=== PATIENT | male | born 1985 | race Caucasian/White ===

== ENCOUNTER 2018-07-23 19:40 | Inpatient (IN) ==
[2018-07-23 20:25] LABS: URINE SOURCE CLEAN CATCH
[2018-07-23 20:30] LABS: BILIRUBIN URINE SMALL (NEGATIVE); BLOOD URINE NEGATIVE (NEGATIVE); COLOR YELLOW; GLUCOSE URINE NEGATIVE (NEGATIVE); KETONE URINE NEGATIVE (NEGATIVE); LEUKOCYTES URINE NEGATIVE (NEGATIVE); NITRITE URINE NEGATIVE (NEGATIVE); PH URINE 6.5; PROTEIN URINE NEGATIVE (NEGATIVE); TURBIDITY URINE CLEAR (CLEAR); UROBILINOGEN URINE NORMAL (NORMAL)
[2018-07-23 20:32] LABS: UR EPITHELIAL CELLS <10 /HPF (<10); URINE BACTERIA NEGATIVE /HPF; URINE RBC <10 /HPF (<10); URINE WBC <10 /HPF (<10)
[2018-07-23 20:59] LABS: INR 1.07; PROTIME 14.8 Seconds (11.0-16.0)
[2018-07-23] MEDS: PROAMATINE PO ONE ×2 (21:27→21:47)
[2018-07-23 21:44] LABS: AGAP 14; ALB/GLOB RATIO 1.3; ALKALINE PHOSPHATASE 328 U/L (32-122); AMYLASE 49 U/L (20-200); BUN 5 mg/dL (8-22); CALCIUM 8.7 mg/dL (8.8-10.2); CHLORIDE 100 mmol/L (98-107); COSMO 271; CREATININE 0.8 mg/dL (0.7-1.2); ESTIMATED GFR > 60; GLUCOSE 105 mg/dL (70-104); LIPASE 60 U/L (13-60); POTASSIUM 5.2 mmol/L (3.5-5.1); SODIUM 137 mmol/L (136-145); TCO2 23 mmol/L (25-35); TOTAL BILIRUBIN 13.27 mg/dL (0.20-1.00); TOTAL PROTEIN 7.2 g/dL (6.3-8.3)
[2018-07-23 21:52] LABS: BASO# 0.29 X1000 (0.0-0.2); BASO% 3.2 % (0.0-0.8); EOS% 2.2 % (0.0-10.0); HEMATOCRIT 38.1 % (42.0-52.0); HEMOGLOBIN 13.6 g/dL (14.0-18.0); LYMPH# 3.74 X1000 (1.2-3.4); LYMPH% 41.6 % (20.5-51.1); MCHC 35.7 g/dL (33-37); MCV 81.2 FL (81-99); MONO# 1.17 X1000 (0.11-0.59); MPV 11.2 FL (7.4-10.4); PLT 318 X1000 (130-400); RBC 4.69 XMIL (4.7-6.1); RDW 14.6 % (11.5-14.5)
[2018-07-23 22:02] LABS: GOT 882 U/L (10-34); GPT 1242 U/L (10-44)
[2018-07-23 23:51] LABS: ACETAMINOPHEN < 1.2 ug/mL (10-30); IRON SATURATION 34 %; TIBC 375 ug/dL; TOTAL IRON 129 ug/dL (53-167); UNBOUND IRON 246 ug/dL (112-346)
[2018-07-24 00:18] LABS: UR AMPHETAMINES QUAL NONE DETECTED (NONE DETECT); UR BARBITUATES QUAL NONE DETECTED (NONE DETECT); UR BENZODIAZEPIN QUAL NONE DETECTED (NONE DETECT); UR CANNABINOIDS QUAL NONE DETECTED (NONE DETECT); UR COCAINE QUAL NONE DETECTED (NONE DETECT); UR METHADONE QUAL NONE DETECTED (NONE DETECT); UR OPIATES QUAL NONE DETECTED (NONE DETECT); UR OXYCODONE QUAL NONE DETECTED (NONE DETECT); UR PCP QUAL NONE DETECTED (NONE DETECT)
--- NOTE | 2018-07-24 01:13 | HISTORY AND PHYSICAL ---
CHIEF COMPLAINT: Nausea and vomiting, right upper quadrant abdominal pain. HISTORY OF PRESENT ILLNESS: This is a 32-year-old male with history of IV drug abuse who presented to the emergency department complaining of abdominal pain. Actually, he was brought from long-term. He reports that during the last 3 to 4 days he was complaining of some nausea and vomiting. 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 He denies any fever or chills. Here upon ER evaluation, we noticed his liver enzymes were very elevated as well as alkaline phosphatase levels as well so he is being admitted to the hospital for further evaluation and treatment. PAST MEDICAL HISTORY: Patient does not have any medical condition. PAST SURGICAL HISTORY: None. ALLERGIES: Patient is not allergic to anything. 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 He is using synthetic marijuana that is smoked. He does not drink alcohol anymore and he used to smoke 1 pack per day since his 20s. FAMILY HISTORY: Noncontributory. REVIEW OF SYSTEMS: All 11 systems were reviewed and all symptoms are related to H and P. PHYSICAL EXAMINATION: VITALS: Temperature 98.1 degrees, heart rate 74, respiratory rate 18, blood pressure 133/81, O2 saturation 97% on room air. GENERAL: This is a 32-year-old male lying in bed in no acute distress. HEENT: Head is normocephalic and atraumatic. NECK: No JVD noted. No carotid bruits. No lymphadenopathy. No thyromegaly. CARDIOVASCULAR: S1, S2 heard. No murmurs, gallops, or rubs. Regular rate and rhythm. RESPIRATORY: Clear bilaterally to auscultation. No work of breathing or using accessory muscles. ABDOMEN: Soft, a little bit tender to palpation in the right upper quadrant, but there are no signs of peritoneal irritation. EXTREMITIES: No clubbing, cyanosis, or edema. Peripheral pulses present in both legs. NEUROLOGICAL: Patient alert, oriented x3. Moves 4 extremities. LABORATORY DATA: White cell count 9.0, hemoglobin 13.6, hematocrit 38.1, platelets 318. INR 1.07. Potassium 5.2 with glucose 105. Ferritin 568 with total bilirubin of 13.27. AST 882, ALT 1242, alkaline phosphatase 328, ammonia level is 61. Acetaminophen level less than 1.2. ASSESSMENT/PLAN: Acute hepatitis vs biliary obstruction. At this point, I do not know the reason why he has this problem. I do not know if this is a viral hepatitis or it is status secondary to drugs or medication. The patient reports not been taking medications while he is in long-term. At this point, we are going to order hepatitis panel. The acetaminophen level is normal and we will check HIV as well because of his history of IV drug abuse. We are going to order an abdominal ultrasound to see there is any biliary obstruction. CT of the abdomen and pelvis has been ordered but has not been reported yet. We will consult Dr. Wells for further evaluation and treatment. We will continue to monitor this patient closely here in the hospital. cc: Ryan Reid MD MTDD
[2018-07-24] MEDS ORDERED: ZOFRAN IV PRN (01:21)
[2018-07-24] MEDS: NS 1,000 ML IV SCH ×3 (01:25→18:11)
[2018-07-24] MEDS ORDERED: ROCEPHIN 1 GM in NS 50 ML IV ONE (02:02)
--- NOTE | 2018-07-24 02:05 | PROVIDER DOCUMENTATION ---
This chart was entered by Cassidy Grewal Scribe, acting as scribe for Sha Oliva MD. HPI-Abdominal Pain/GI Problem - General Chief Complaint: Abdominal Pain Stated Complaint: JAUNDICE W/EPIGASTRIC AND FLANK PAIN Time Seen by Provider: 07/23/18 19:47 Source: patient Allergies/Adverse Reactions: Patient Allergies Allergy/AdvReac Type Severity Reaction Status Date / Time No Known Allergies Allergy Verified 07/23/18 21:34 Home Medications: Home Medication List Medication Instructions Recorded Confirmed Last Taken Type NK [No Home Medications] 07/23/18 07/23/18 Unknown History - History of Present Illness-ABD Nature of Presenting Problems: 32yom presents to ED cc epigastric pain, RLQ pain, nausea, vomiting and yellowing of skin. Pt is an inmate at the [facility]. Pt has hx of IVDA but no hx of blood transfusion. Abdominal Pain Onset Location: reports: epigastric Pain Radiation: reports: RUQ Quality of Pain: reports: aching Severity in ED: reports: moderate Onset/Duration: reports: unsure Timing: reports: still present, constant, changing over time Activities at Onset: reports: none Exposure to sick contacts?: No Modifying Factors: improves with: nothing Review of Systems - Adult - REVIEW OF SYSTEMS - ADULT Constitutional: reports: see HPI. denies: chills, fever, fatique Eyes: reports: no symptoms reported Ears, Nose, Mouth & Throat: reports: no symptoms reported Cardiovascular: reports: no symptoms reported Respiratory: reports: no symptoms reported Gastrointestinal: reports: see HPI, abdominal pain (epigastric and RUQ), vomit ing Genitourinary: reports: no symptoms reported Musculoskeletal: reports: no symptoms reported Integumentary: reports: see HPI, other (yellowing of skin) Neurological: reports: no symptoms reported Hematologic/Lymphatic: reports: no symptoms reported Past History - Adult - PAST MEDICAL HISTORY-ADULT Review of Records: reports: Nursing Assessment Review, Medications Reviewed, Social history reviewed & non-contributory. Major Childhood Illnesses: reports: denies history Cardiovascular: reports: denies history Respiratory: reports: denies history Gastrointestinal: reports: denies history Obstetrical/Gynecological: reports: denies history Genitourinary: reports: denies history Musculoskeletal: reports: denies history Neurological: reports: denies history Endocrine/Immune: reports: denies history Other Conditions: reports: denies history - IMMUNIZATION STATUS Childhood Immunizations: See Nurse Assessment Flu Vaccine: See Nurse Assessment - FAMILY HISTORY Family History: reviewed, not pertinent - SOCIAL HISTORY Smoking: cigarettes, greater than 1 pack/day Provider spent 3-5 mins advising pt. on dangers of tobacco.: Discussed manners to quit use, and f/u contacts for add'l counseling. Physical Exam-General - PHYSICAL EXAM-ADULT Initial Vital Signs Reviewed: Yes - CONSTITUTIONAL General Appearance: alert, mild distress. negative: anxious, combative - EYES Eyes: PERRL/EOMI, scleral icterus. negative: photophobia - HEAD, EARS, NOSE, MOUTH & THROAT HENMT: moist mucous membranes, normal ENT inspection. negative: angioedema - NECK Neck: non-tender, full range of motion, supple, normal inspection. negative: Brudzinski's sign, carotid bruit, C-spine tenderness - RESPIRATORY Respiratory: chest non-tender, lungs clear, normal breath sounds, no pleuratic chest pain - CARDIOVASCULAR Cardiovascular: normal peripheral pulses, regular rate, rhythm, no edema - GASTROINTESTINAL (ABDOMEN) Abdominal Exam: normal bowel sounds, tenderness (epigastric). negative: non tender - LYMPHATIC Lymphatic: no adenopathy - MUSCULOSKELETAL Back Exam: normal inspection, no CVA tenderness, no vertebral tenderness. negative: swelling Extremity: normal range of motion, non-tender, normal gait. negative: deformity - SKIN Integumentary: warm/dry, signs of IVDA, jaundice. negative: normal color, diaphoresis - NEUROLOGIC Neurologic: grossly normal, no motor/sensory deficits - PSYCHIATRIC Psych/Mental Status: normal thought content, normal thought process, oriented x 3 Progress - PLAN OF CARE/RESULTS Progress/Plan/Lab Results: Vital Signs - 8 hr 07/23/18 19:45 Temperature 98.1 F Pulse Rate 74 Respiratory Rate 18 Blood Pressure 138/81 O2 Sat by Pulse Oximetry 97 Laboratory Results - last 24 hr 07/23/18 07/23/18 07/23/18 20:20 20:45 20:45 WBC RBC Hgb Hct MCV MCH MCHC RDW Std Deviation Plt Count MPV Immature Gran % (Auto) Neut % (Auto) Lymph % (Auto) [place] % (Auto) Eos % (Auto) Baso % (Auto) Immature Gran # (Auto) Neut # (Auto) Lymph # (Auto) [place] # (Auto) Eos # (Auto) Baso # (Auto) PT 14.8 INR 1.07 Sodium 137 Potassium 5.2 H Chloride 100 Carbon Dioxide 23 L Anion Gap 14 BUN 5 L Creatinine 0.8 Estimated GFR/1.73 m2 > 60 BUN/Creatinine Ratio 6 Glucose 105 H Calculated Osmolality 271 Calcium 8.7 L Total Bilirubin 13.27 H AST 882 H ALT 1242 H Alkaline Phosphatase 328 H Ammonia Total Protein 7.2 Albumin 4.0 Globulin 3.2 Albumin/Globulin Ratio 1.3 Amylase 49 Lipase 60 Urine Source CLEAN CATCH Urine Color YELLOW Urine Turbidity CLEAR Urine pH 6.5 Ur Specific [place] 1.000 Urine Protein NEGATIVE Ur Glucose (Stick) NEGATIVE Ur Ketones (Stick) NEGATIVE Urine Blood NEGATIVE Urine Nitrite NEGATIVE Urine Bilirubin SMALL A Urobilinogen Dipstick NORMAL Urine Leukocytes NEGATIVE Urine WBC (Auto) <10 Urine RBC (Auto) <10 U Epithel Cells (Auto) <10 Urine Bacteria (Auto) NEGATIVE 07/23/18 07/23/18 20:45 21:20 WBC 9.00 RBC 4.69 L Hgb 13.6 L Hct 38.1 L MCV 81.2 MCH 29.0 MCHC 35.7 RDW Std Deviation 14.6 H Plt Count 318 MPV 11.2 H Immature Gran % (Auto) 0.0 Neut % (Auto) 40.0 L Lymph % (Auto) 41.6 [place] % (Auto) 13.0 H Eos % (Auto) 2.2 Baso % (Auto) 3.2 H Immature Gran # (Auto) 0.00 Neut # (Auto) 3.60 Lymph # (Auto) 3.74 H [place] # (Auto) 1.17 H Eos # (Auto) 0.20 Baso # (Auto) 0.29 H PT INR Sodium Potassium Chloride Carbon Dioxide Anion Gap BUN Creatinine Estimated GFR/1.73 m2 BUN/Creatinine Ratio Glucose Calculated Osmolality Calcium Total Bilirubin AST ALT Alkaline Phosphatase Ammonia 61 H Total Protein Albumin Globulin Albumin/Globulin Ratio Amylase Lipase Urine Source Urine Color Urine Turbidity Urine pH Ur Specific [place] Urine Protein Ur Glucose (Stick) Ur Ketones (Stick) Urine Blood Urine Nitrite Urine Bilirubin Urobilinogen Dipstick Urine Leukocytes Urine WBC (Auto) Urine RBC (Auto) U Epithel Cells (Auto) Urine Bacteria (Auto) Orders Category Date Time Status Saline Loc DIRECTED Care 07/23/18 20:14 Active NPO Diet 07/23/18 20:[address] ABD/PELVIS W/IV CONT ONLY [CT] Stat Exams 07/23/18 22:41 Ordered AMMONIA [CHEM] Stat Lab 07/23/18 21:20 Completed AMYLASE [CHEM] Stat Lab 07/23/18 20:45 Completed CBC WITH ELECTRONIC DIFF [HEME] Stat Lab 07/23/18 20:45 Completed COMPREHENSIVE METABOLIC PANEL [CHEM] Stat Lab 07/23/18 20:45 Completed FERRITIN Stat Lab 07/23/18 22:42 Received HEPATITIS PROFILE [HH] Stat Lab 07/23/18 20:36 Ordered LIPASE [CHEM] Stat Lab 07/23/18 20:45 Completed PROTIME WITH INR [COAG] Stat Lab 07/23/18 20:45 Completed TIBC [UIBC W TOTAL IRON] [CHEM] Stat Lab 07/23/18 20:45 Received Tylenol [ACETAMINOPHEN] [TDM] Stat Lab 07/23/18 20:45 Received URINALYSIS W/POSS RFLX CULT [URINALYSIS] Stat Lab 07/23/18 20:20 Completed Midodrine [Proamatine] Med 07/23/18 21:27 Discontinued 10 mg PO NOW ONE Result Diagrams: 07/23/18 20:45 07/23/18 20:45 - CONSULTS/PCP/HOSPITALIST Notification #1 *Consult/PCP/Hospitalist*: Dr. Wells Time Discussed: 22:50 Consult Disposition: Admit (agreed to admit pt and requested I order a CT of the abdomen) #2 Consult: Dr. Dominique Time Discussed: 23:07 Consult Disposition: Admit (Hx, PE and pt care discussed.) Departure - Departure Date of Disposition Decision: 07/23/18 Time of Disposition Decision: 23:07 DIAGNOSIS: Transaminitis, Acute cholecystitis Abdominal pain Qualifiers: Abdominal location: epigastric Qualified Code(s): R10.13 - Epigastric pain Vomiting Qualifiers: Nausea presence: with nausea Disposition: ADMITTED INPATIENT 09 Certified Medical Emergency: Emergent Condition: Stable - Critical Care Note This patient required my direct & personal management of CC.: No Attestation - Physician/ GERTRUDE Attestation Patient care was provided by Advanced Practice Provider:: No The physician spent face to face time with patient:: Yes Advanced Practice Provider documentation review:: Supervising physician onsite and consulted in the evaluation and care of this patient. The physician did have a face to face encounter with the patient. This chart was documented by the indicated scribe, (Cassidy Grewal Scribe) and accurately reflects the services I performed and decisions made by me, Sha García MD, as attested by the provider's signature.
[2018-07-24] MEDS: PRILOSEC PO SCH (05:59)
--- NOTE | 2018-07-24 06:39 | Diag Imaging Result Doc PS360 ---
CT ABD/PELVIS W/IV CONT ONLY - 07/23/2018 INDICATION: EPIGASTRIC PAIN, TRANSAMINITIS COMPARISON: None FINDINGS: The lung bases are clear and the heart size is normal. There is periportal edema throughout the liver. There is severe wall thickening of the gallbladder. No gallbladder distention or visible radiodense stones. There is some inflammation around the gallbladder and duodenum as well as the pancreatic head. Common bile duct appears nondilated. No bowel obstruction or inflammation. Trace pelvic free fluid. No free air. Urinary bladder, prostate, and rectum are normal. Bony structures are intact and well mineralized. IMPRESSION: 1. High-grade inflammation surrounding the gallbladder also involving the descending duodenum and pancreatic head. Highly suspicious for cholecystitis. Gallbladder ultrasound recommended. 2. Trace pelvic free fluid. 3. Mild periportal edema of the liver. This exam was performed using automated exposure control, adjustment of mA or kV according to patient size, and/or use of iterative reconstruction technique Electronically signed by Oumar Gusman 07/24/2018 6:36 AM
[2018-07-24 08:04] LABS: INR 1.08; PROTIME 14.8 Seconds (11.0-16.0)
--- NOTE | 2018-07-24 09:30 | Diag Imaging Result Doc PS360 ---
EXAM: US ABDOMEN-COMPLETE HISTORY: transaminitis TECHNIQUE: Abdominal ultrasound COMPARISON: CT from 07/23/2018 FINDINGS: Normal pancreas. No abdominal aortic aneurysm. Normal inferior vena cava. No focal hepatic abnormality. Normal right kidney. No hydronephrosis. The gallbladder wall is thickened measuring up to 5 mm. No stones. The common bile duct measures 3 mm. Normal spleen. Normal left kidney. No hydronephrosis. IMPRESSION: Acalculous cholecystitis. Electronically signed by Abner Johnston 07/24/2018 9:27 AM
[2018-07-24 20:56] LABS: HIV ANTIBODY SCREEN SEE COMMENTS
[2018-07-24] MEDS ORDERED: IMODIUM PO ONE (22:06)
[2018-07-25] MEDS: NS 1,000 ML IV SCH ×4 (02:02→22:35)
[2018-07-25] MEDS: PRILOSEC PO SCH (06:27)
[2018-07-25 07:27] LABS: BASO# 0.19 X1000 (0.0-0.2); BASO% 2.3 % (0.0-0.8); EOS# 0.28 X1000 (0.0-0.7); EOS% 3.4 % (0.0-10.0); HEMATOCRIT 39.6 % (42.0-52.0); LYMPH# 2.89 X1000 (1.2-3.4); LYMPH% 34.9 % (20.5-51.1); MCH 28.7 PG (27-31); MCHC 35.4 g/dL (33-37); MCV 81.3 FL (81-99); MONO# 1.06 X1000 (0.11-0.59); MONO% 12.8 % (1.7-9.3); MPV 11.4 FL (7.4-10.4); NEUT# 3.87 X1000 (1.4-6.5); NEUT% 46.6 % (42.2-75.2); PLT 323 X1000 (130-400); RBC 4.87 XMIL (4.7-6.1); RDW 15.3 % (11.5-14.5); WBC 8.29 X1000 (4.8-10.8)
[2018-07-25 07:44] LABS: AGAP 13; ALB/GLOB RATIO 1.3; ALBUMIN 3.5 g/dL (3.5-5.0); ALKALINE PHOSPHATASE 314 U/L (32-122); BUN 4 mg/dL (8-22); CALCIUM 8.6 mg/dL (8.8-10.2); CHLORIDE 102 mmol/L (98-107); COSMO 272; CREATININE 0.7 mg/dL (0.7-1.2); ESTIMATED GFR > 60; GLUCOSE 95 mg/dL (70-104); POTASSIUM 4.2 mmol/L (3.5-5.1); SODIUM 138 mmol/L (136-145); TCO2 23 mmol/L (25-35); TOTAL BILIRUBIN 14.71 mg/dL (0.20-1.00); TOTAL PROTEIN 6.2 g/dL (6.3-8.3)
[2018-07-25 08:01] LABS: GOT 1082 U/L (10-34); GPT 1323 U/L (10-44)
[2018-07-25 08:25] LABS: INR 1.13; PROTIME 15.4 Seconds (11.0-16.0)
[2018-07-25 14:37] LABS: HEPATITIS PROFILE ACUTE SEE COMMENTS
[2018-07-25] MEDS ORDERED: MORPHINE IV PRN (17:17)
[2018-07-26] MEDS: NS 1,000 ML IV SCH (01:43)
[2018-07-26] MEDS: PRILOSEC PO SCH (06:08)
[2018-07-26 07:21] LABS: BASO# 0.21 X1000 (0.0-0.2); BASO% 2.3 % (0.0-0.8); EOS# 0.38 X1000 (0.0-0.7); EOS% 4.2 % (0.0-10.0); HEMATOCRIT 38.8 % (42.0-52.0); HEMOGLOBIN 13.9 g/dL (14.0-18.0); IMM GRAN# 0.02 X1000 (0.0-0.04); IMM GRAN% 0.2 % (0.0-0.5); LYMPH# 3.55 X1000 (1.2-3.4); LYMPH% 39.6 % (20.5-51.1); MCHC 35.8 g/dL (33-37); MCV 80.8 FL (81-99); MONO# 1.28 X1000 (0.11-0.59); MONO% 14.3 % (1.7-9.3); MPV 11.3 FL (7.4-10.4); NEUT# 3.53 X1000 (1.4-6.5); NEUT% 39.4 % (42.2-75.2); PLT 311 X1000 (130-400); RDW 15.6 % (11.5-14.5); WBC 8.97 X1000 (4.8-10.8)
[2018-07-26 07:22] LABS: INR 1.07; PROTIME 14.8 Seconds (11.0-16.0)
[2018-07-26 07:37] LABS: AGAP 9; ALB/GLOB RATIO 1.5; ALBUMIN 3.7 g/dL (3.5-5.0); ALKALINE PHOSPHATASE 307 U/L (32-122); BUN 3 mg/dL (8-22); CALCIUM 8.5 mg/dL (8.8-10.2); CHLORIDE 101 mmol/L (98-107); COSMO 270; CREATININE 0.8 mg/dL (0.7-1.2); ESTIMATED GFR > 60; GLUCOSE 91 mg/dL (70-104); POTASSIUM 3.8 mmol/L (3.5-5.1); SODIUM 137 mmol/L (136-145); TCO2 27 mmol/L (25-35); TOTAL BILIRUBIN 14.72 mg/dL (0.20-1.00); TOTAL PROTEIN 6.1 g/dL (6.3-8.3)
[2018-07-26 07:52] LABS: GOT 1228 U/L (10-34); GPT 1435 U/L (10-44)
[2018-07-26 10:43] LABS: HCV BY PCR SEE COMMENTS
--- NOTE | 2018-07-26 12:01 | PROGRESS NOTE ---
DATE: 07/24/2018 SUBJECTIVE: Today, Mr. Barrett refers to be feeling a lot better. He said his pain has significantly improved, and that he has gotten a lot of appetite and he wants to be fed. OBJECTIVE: Vital Signs: Blood pressure is 116/57, pulse of 53, respirations 16, temperature 97.9 degrees, the patient is saturating 99% on room air. General: Mr. Barrett is a 32-year-old gentleman. He is in bed. No distress. HEENT: Mucosa is pink and moist. About 2+ to 3+ icteric. Chest: Clear to auscultation. No crepitations. No rhonchi. Cardiovascular: Regular rate and rhythm. Abdomen: Soft. Minimally tender in the epigastrium. Bowel sounds are present. Extremities: No pedal edema. 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 LABORATORY DATA: None for today. Yesterday's has been reviewed. He did have a total bilirubin of 13.37. AST and ALT have significantly been elevated. ASSESSMENT: 1. Acute hepatocellular injury, most likely viral hepatitis. Hepatitis panel has been done. We are pending on the results. 2. Acalculous cholecystitis. The patient is currently asymptomatic of this. He would be advised to follow up with Surgery at a later date. 3. Inmate from correctional facility. The patient has an officer in his room. In general, Mr. Barrett is stable. He continues to be remarkably icteric. We think he probably has an acute hepatitis of viral etiology. We are pending a hepatitis panel. He has some appetite, so we are going to feed him, and await his hepatitis panel. The patient has been evaluated by Gastroenterology as well. cc: Rosalio Little MD
[2018-07-26] MEDS ORDERED: MARCAINE 0.25% PF/EPI 1:200,000 ONE (13:36)
[2018-07-26] MEDS ORDERED: LR 1,000 ML ONE (13:36)
[2018-07-26] MEDS ORDERED: SODIUM CHLORIDE 0.9% ONE (13:36)
[2018-07-26] MEDS ORDERED: DIPRIVAN 1% ONE (13:56)
[2018-07-26] MEDS ORDERED: FENTANYL ONE (13:56)
[2018-07-26] MEDS ORDERED: NORCURON ONE (13:58)
[2018-07-26] MEDS ORDERED: QUELICIN (DOSE) ONE (13:58)
[2018-07-26] MEDS ORDERED: SODIUM CHLORIDE 0.9% 0 ML ONE (13:58)
[2018-07-26] MEDS ORDERED: VERSED ONE (14:09)
--- NOTE | 2018-07-26 14:31 | GASTROENTEROLOGY CONSULTATION ---
DATE: 07/24/2018 REASON FOR CONSULTATION: Elevated liver function tests. HISTORY OF PRESENT ILLNESS: This is a 32 -year-old male who reports onset of symptoms 4 to 5 days ago. He reports increased weakness, not being able to eat, episodes of nausea, vomiting and abdominal pain. He had noticed his urine to be dark in color and his stools we light in color. Patient currently resides in long-term and he is also on the work release program. There is an officer at his bedside. Patient denies taking any over the counter medications recently. He does not take any medications. He denies a diagnosis of hepatitis. Patient does have a history of IV drug abuse. Patient states not recently. He denied fever. On admission his liver function tests were elevated. Total bilirubin 13.27, AST 882, ALT 1242, alkaline phosphatase 328. PAST MEDICAL HISTORY: None reported. PAST SURGICAL HISTORY: None reported. ALLERGIES: No known drug allergies. HOME MEDICATIONS: None reported. SOCIAL HISTORY: History of IV methamphetamine use several years ago but none recently. Patient has a history of marijuana use. No reported alcohol use. History of tobacco use. He currently resides in long-term and is on their work release program. REVIEW OF SYSTEMS: Per history of present illness. PHYSICAL EXAMINATION: VITAL SIGNS: Temperature 97.8 degrees, pulse 56, respirations 16, blood pressure 114/61. GENERAL: Patient is awake, alert in no acute distress. HEENT: Normocephalic, atraumatic. Pupils equal, round, reactive to light. Sclera are icteric. CARDIOVASCULAR: Regular rate and rhythm. RESPIRATORY: Lung sounds essentially clear. ABDOMEN: Soft, mild tenderness in the upper abdomen. Otherwise positive bowel sounds. EXTREMITIES: No lower extremity edema noted. NEUROLOGIC: Cranial nerves 2-12: Patient is awake, alert and oriented to person, place, time. SKIN: Jaundice noted. LABORATORY DATA: Hematology: WBC 9.0, hemoglobin 13.6, hematocrit 38.1, MCV 81.2, platelet 318. Coagulation: ProTime 14.8, INR 1.08. Chemistry: Sodium 137, potassium 5.2, chloride 100, CO2 23, BUN 5, creatinine 0.8, glucose 105, calcium 8.7, iron 129, TIBC 375, % saturation 34, ferritin 568, total bilirubin 13.27, AST 882, ALT 1242, alkaline phosphatase 328., amylase 49, lipase 60. Urinalysis negative except for small amount of bilirubin. Toxicology: Acetaminophen less than 1.2. IMAGING STUDIES: Abdominal CT scan showed high grade inflammation surrounding the gallbladder also involving the descending duodenum and pancreatic head, suspicious for cholecystitis, trace pelvic free fluid, mild periportal edema of the liver. Abdominal ultrasound showed acalculous cholecystitis. ASSESSMENT/PLAN: 1. Nausea and vomiting. 2. Abdominal pain. 3. Elevated liver function tests. 4. We are awaiting hepatitis profile, also human immunodeficiency virus profile. Iron studies were normal. Tylenol level was normal. We will continue symptomatic treatment, supportive care. Further plans will be made as needed. I have discussed this case with Dr. Wells. Thank you for this consultation. Dictated by SHIRIN Huitron for Joel Wells MD cc: SHIRIN Garcias MD
[2018-07-26] MEDS ORDERED: KEFZOL 1 GM/D5W 1 GM/50 ML IVPB ONE (14:38)
[2018-07-26] MEDS ORDERED: PRECEDEX ONE (14:55)
[2018-07-26] MEDS ORDERED: NIMBEX ONE (14:58)
[2018-07-26] MEDS ORDERED: ROBINUL ONE ×2 (15:05→15:22)
[2018-07-26] MEDS ORDERED: ZOFRAN ONE (15:15)
[2018-07-26] MEDS ORDERED: TORADOL ONE (15:15)
[2018-07-26] MEDS ORDERED: DECADRON ONE (15:15)
[2018-07-26] MEDS ORDERED: NEOSTIGMINE ONE (15:23)
--- NOTE | 2018-07-26 15:30 | PROGRESS NOTE ---
DATE: 07/26/2018 SUBJECTIVE: Patient continues to be icteric. Denies any abdominal pain, fever, or chills. OBJECTIVE: Vital Signs: Temperature 98.1, heart rate 66, respiratory rate 18, blood pressure 152/82, O2 saturation 97% on room air. General examination: This is a 32-year-old male, lying in bed, in no acute distress. HEENT: Head is normocephalic, atraumatic. Pupils equal, round, and reactive to accommodation. Very icteric conjunctiva as well as skin of his face. Cardiovascular: S1, S2 heard. No murmurs, gallops, or rubs. Regular rate and rhythm. Respiratory: Clear bilaterally to auscultation. No work of breathing or using accessory muscles. Abdomen: Soft, nontender to palpation. Bowel sounds present. No organomegaly. Extremities: No clubbing, cyanosis, or edema. Peripheral pulses present in both legs. Neurological: Patient is alert and oriented x3. Moves 4 extremities. DIAGNOSTIC STUDIES: AST continues to rise, his AST is 1228, ALT 1435, with bilirubin 14.72, and alkaline phosphatase is 307. ASSESSMENT AND PLAN: 1. Newly diagnosed hepatitis C. We have found out this in the hepatitis panel. We have checked viral load and there are over 3 million copies. Gastroenterology has been consulted. We will follow recommendations. 2. Acalculous cholecystitis. I think this patient has been scheduled for laparoscopic cholecystectomy later on today. We will follow recommendations from General Surgery. 3. Inmate from correctional facility. Patient has an officer in the room. DISPOSITION: We will continue to monitor this patient closely. We will keep checking CBC daily. cc: Ryan Reid MD [facility]
[2018-07-26] MEDS ORDERED: PHENERGAN IV PRN (16:27)
[2018-07-26] MEDS ORDERED: SODIUM CHLORIDE 0.9% INJ PRN (16:28)
[2018-07-26] MEDS: NORCO-7.5 PO PRN ×2 (16:37→21:57)
[2018-07-26] MEDS: LR 1,000 ML IV SCH (16:48)
--- NOTE | 2018-07-26 17:23 | Diag Imaging Result Doc PS360 ---
EXAM: OPERATIVE CHOLANGIOGRAM INDICATION: CHOLECYSTITIS TECHNIQUE: COMPARISON: None. FINDINGS: A single spot fluoroscopic image of the opacified common bile duct was provided, which were performed intraoperatively during cholecystectomy by Dr. Cirilo Ibarra. The common bile duct appears grossly normal in caliber. No discrete filling defect or stricture is identified. Contrast is seen flowing normally into the small bowel. IMPRESSION: As above. Please correlate with live fluoroscopic imaging. Electronically signed by Michael Polanco 07/26/2018 5:21 PM
--- NOTE | 2018-07-26 18:44 | CONSULTATION ---
DATE OF CONSULTATION: 07/24/2018 ADDENDUM CONSULTING PHYSICIAN: Dr. Dominique. REASON FOR CONSULT: Elevated liver function tests. HISTORY: This is a 32-year-old gentleman [facility] the [facility] with GI symptoms of abdominal pain associated with nausea and vomiting. Evaluation in the ER showed elevated LFT. Further investigation shows slightly thickened gallbladder wall but no evidence of cholelithiasis or choledocholithiasis. The patient tells me that he is feeling better since admission. VITAL SIGNS: Temperature 97.9, pulse 53 per minute, breathing 16, blood pressure 116/57. LABORATORY DATA: Transaminases showed elevated AST 882, alkaline phosphatase was 328 with ALT of 1242. Total bilirubin was 13.27. IMPRESSION: A 32-year-old gentleman who has history of IV drug abuse transferred from the penitentiary with gastrointestinal symptoms, has elevated liver function tests. His transaminases are significantly high with elevated alkaline phosphate and total bilirubin as well, but there was no imaging evidence of obstructive jaundice. He did have some thickening of the gallbladder wall, but this presentation is very suggestive of viral hepatitis most likely acute hepatitis B or C. I do not think he has drug-induced liver injury or ischemic liver injury. Plan would be to wait for the acute hepatitis panel, which has already been sent, and depending on the findings, we will decide further plans. I have explained the findings with the patient. He understands. All his pertinent questions answered. cc: Joel Wells MD
--- NOTE | 2018-07-26 21:52 | OPERATIVE NOTE ---
PROCEDURE DATE: 07/26/2018 PREOPERATIVE DIAGNOSIS: Acalculous cholecystitis. POSTOPERATIVE DIAGNOSIS: Acalculous cholecystitis. PRINCIPAL PROCEDURE: 1. Laparoscopic cholecystectomy with intraoperative cholangiogram. 2. Liver biopsy right lobe of liver x2. SURGEON: Letty Ibarra MD. ANESTHESIA: General in addition to local anesthetic. ESTIMATED BLOOD LOSS: 25 mL. DRAINS: None. INDICATIONS: Torres Barrett is a 32-year-old white male inmate who is profoundly jaundiced clinically. He has markedly elevated liver function tests. A CT scan of his abdomen and pelvis has been performed and it suggests inflammation around the gallbladder. Cholecystectomy was recommended. FINDINGS: The liver did not look like cirrhosis. It was of normal size and besides being lightly colored superficially right lobe it appeared to be normal. We did do 2 core needle biopsies right lobe of the liver. The gallbladder was floppy, thin-walled. There was some edema around the gallbladder. There did not appear to be stones in it and there was no obvious infection. We did do an intraoperative cholangiogram, which showed free flow of the dye into the duodenum without evidence of extrahepatic stones or obstruction. There was no abnormal dilatation of the extrahepatic bile ducts. No other intraabdominal pathology was noted. We felt we did the operation safely. I think this is more of a liver issue than a gallbladder issue. DESCRIPTION OF PROCEDURE: The patient was brought to the operating room, placed supine, received general anesthesia, was intubated. His abdomen was prepped and draped within sterile field. We made a curvilinear incision below the umbilicus using a 15 blade scalpel. Veress needle was introduced through this incision into the abdomen. Pneumoperitoneum was established. Veress needle was removed and I placed a 11 mm trocar through this incision into the abdomen. The camera was placed through this port and the abdomen was explored for injury, there was none. Three other trocars were placed along the right costal margin under direct vision the camera. I placed a 11 mm trocar just to the right of the midline and two 5 mm trocars in our midclavicular and anterior axillary lines. Through our most lateral port, the gallbladder was grasped and retracted superiorly along with the right lobe of the liver. Another grasper was used to grab the body of the gallbladder. We bluntly dissected out the triangle of Calot. We identified the cystic duct along its length. I placed a clip at the cystic duct gallbladder junction. I made a small incision in the cystic duct using hook scissors and a Taut intraoperative cholangiogram catheter was used to perform the cholangiogram with the findings above. Once cholangiogram was completed, we removed the catheter and 2 clips were placed proximally on the cystic duct. We divided the cystic duct between clips using hook scissors. The cystic artery was identified. A clip was placed distally, 2 proximally. It was divided using hook scissors. The spatula cautery was used to remove the gallbladder from the liver bed. There was no spillage of stones or bile during this procedure and I removed the gallbladder through our umbilical incision. The trocar was placed back through this incision and the area of operation was thoroughly inspected, irrigated, and the irrigation was removed with suction. There was no evidence of ongoing bleeding or bile leak, and no drains were left. We then used a core needle biopsy through 1 of our 5 mm trocar sites to perform 2 core needle biopsies of the right lobe of the liver and send them to the pathologist for permanent section. Bleeding was controlled with spatula cautery and any blood was removed with suction. All trocars removed under direct vision the camera. The pneumoperitoneum was allowed to dissipate. I used [id number] 2-0 Vicryl stitches to reapproximate the fascia at our 11 mm port sites. All skin was closed with 4-0 Monocryl subcuticular stitches. Steri-Strips were applied. He tolerated the procedure well with plans for him to go the recovery room and then return to the floor. cc: Letty Ibarra MD
[2018-07-27] MEDS: PRILOSEC PO SCH (06:24)
[2018-07-27] MEDS: LR 1,000 ML IV SCH (06:41)
[2018-07-27] MEDS: NORCO-7.5 PO PRN ×2 (06:53→14:07)
[2018-07-27 07:03] LABS: BASO# 0.05 X1000 (0.0-0.2); BASO% 0.4 % (0.0-0.8); HEMATOCRIT 40.2 % (42.0-52.0); HEMOGLOBIN 14.1 g/dL (14.0-18.0); IMM GRAN# 0.02 X1000 (0.0-0.04); IMM GRAN% 0.2 % (0.0-0.5); LYMPH# 1.88 X1000 (1.2-3.4); LYMPH% 15.6 % (20.5-51.1); MCH 28.4 PG (27-31); MCHC 35.1 g/dL (33-37); MONO# 0.56 X1000 (0.11-0.59); MONO% 4.6 % (1.7-9.3); MPV 11.2 FL (7.4-10.4); NEUT# 9.58 X1000 (1.4-6.5); NEUT% 79.2 % (42.2-75.2); PLT 369 X1000 (130-400); RBC 4.96 XMIL (4.7-6.1); WBC 12.09 X1000 (4.8-10.8)
[2018-07-27 07:26] LABS: AGAP 14; ALB/GLOB RATIO 1.2; ALBUMIN 3.9 g/dL (3.5-5.0); ALKALINE PHOSPHATASE 309 U/L (32-122); BUN 3 mg/dL (8-22); CALCIUM 9.5 mg/dL (8.8-10.2); CHLORIDE 101 mmol/L (98-107); COSMO 275; CREATININE 0.7 mg/dL (0.7-1.2); ESTIMATED GFR > 60; GLUCOSE 147 mg/dL (70-104); POTASSIUM 4.1 mmol/L (3.5-5.1); SODIUM 138 mmol/L (136-145); TCO2 23 mmol/L (25-35); TOTAL PROTEIN 7.1 g/dL (6.3-8.3)
[2018-07-27 07:48] LABS: GOT 913 U/L (10-34); GPT 1493 U/L (10-44); TOTAL BILIRUBIN 16.79 mg/dL (0.20-1.00)
--- NOTE | 2018-07-27 15:31 | PROGRESS NOTE ---
DATE: 07/27/2018 SUBJECTIVE: Patient continues to be icteric. He has reported some general malaise but no abdominal pain, fever, or chills. He is having a good appetite. OBJECTIVE: Vital Signs: Temperature 98.1, heart rate 69, respiratory rate 18, blood pressure 133/60, O2 saturation 96% on room air. General Examination: The is a 32-year-old, male, lying in bed, in no acute distress. HEENT: Very icteric sclerae and also jaundice on the skin of the face. Cardiovascular Examination: S1 and S2 heard. No murmurs, gallops, or rubs. Regular rate and rhythm. Respiratory Examination: Clear bilaterally to auscultation. No work of breathing or using accessory muscles. Abdomen: Soft, nontender to palpation. Bowel sounds present. No organomegaly. Extremities: No clubbing, cyanosis, or edema. Peripheral pulses present in both legs. Neurological Examination: The patient is alert and oriented x3. Moves 4 extremities. Laboratory Emir: Bilirubin 16.79 with AST 913 and ALT 1493. ASSESSMENT AND PLAN: 1. Acute hepatitis C. Viral load is very elevated and his bilirubin is still going. At this point, awaiting recommendations from gastroenterology. I think if the liver function tests continue to trend down, I think he can be discharged. 2. Acalculous cholecystitis, status post laparoscopic cholecystectomy. Patient is doing fine. We will continue to monitor. 3. Inmate from correctional facility. Patient has an officer in his room. 4. Disposition. I think at this point, clinically, he is doing fine. We will keep this patient 1 more day. We will check with gastroenterology to see what else they are planning to do. cc: Ryan Reid MD
--- NOTE | 2018-07-27 17:01 | PROGRESS NOTE ---
DATE: 07/27/2018 SUBJECTIVE: Mr. Torres Barrett is status postoperative day 1 laparoscopic cholecystectomy with intraoperative cholangiogram. He also underwent a liver biopsy. Mr. Torres Barrett looks like he is doing well. All his trocar sites are intact. Steri-Strips in place. His abdomen is soft. He is tolerating a diet. He looks less jaundiced. From our standpoint, he can be discharged related to his laparoscopic cholecystectomy. Further recommendations per his liver and liver function test per our hospitalist and GI med. cc: Letty Ibarra MD
--- NOTE | 2018-07-27 20:05 | PROGRESS NOTE ---
DATE: 07/25/2018 SUBJECTIVE: The patient reports being fine. Continues to have yellowish discoloration of the face and chest. OBJECTIVE: Vital Signs: Temperature 97.8, heart rate 93, respiratory rate 16, blood pressure 107/66, 02 saturation 99% on room air. General: This is a 32-year-old male lying in bed in no acute distress. Cardiovascular: S1 and S2 heard. No murmurs, gallops or rubs. Regular rate and rhythm. Respiratory: Clear bilaterally to auscultation. No work of breathing or using accessory muscles. Abdomen: A little bit tender to palpation in the right upper quadrant, but there are no signs of peritoneal irritation. The patient has bowel sounds present. No organomegaly noted. Extremities: No clubbing, cyanosis, or edema. Peripheral pulses present in both legs. Neurological: Patient is alert and oriented x3. Moves 4 extremities. LABORATORY DATA: CBC is okay. His INR is 1.13. BMP is completely normal. His bilirubin is 14.71 with AST of 1082 and ALT 1323. Ammonia level has not been checked today. HIV is negative. ASSESSMENT/PLAN: 1. Acalculous cholecystitis seen on abdominal ultrasound. His AST and ALT are pretty high and continue to get higher. I think at this point we are going to consult Dr. Ibarra for General Surgery, and we will go from there. 2. History of drug abuse. HIV is negative. Hepatitis panel is still pending. Will continue to monitor this patient closely. We are awaiting a gastroenterology evaluation. cc: Ryan Reid MD MTDD
[2018-07-28] MEDS: PRILOSEC PO SCH (06:27)
--- NOTE | 2018-07-28 06:52 | GASTROENTEROLOGY PROGRESS NOTE ---
DATE: 07/25/2018 SUBJECTIVE: The patient was up walking in the room. He had gotten a shower. He states he does feel better today. His liver function tests remain elevated. Total bilirubin 14.71, AST 1082, ALT 1323, alkaline phosphatase 314. His HIV test was negative. We are waiting on hepatitis profile results. Iron studies are normal. OBJECTIVE: Vital signs: Temperature 97.8, pulse 92, respirations 16, blood pressure 107/56. General: The patient is awake and alert. He is in no acute distress. He has had a shower and is walking in the room. HEENT: Continued scleral jaundice. Skin: Jaundiced. LABORATORY: Hematology: WBC 8.29, hemoglobin 14.0, hematocrit 39.6. Coagulation: ProTime 15.4. INR 1.13. Chemistry: Sodium 138, potassium 4.2, chloride 102, CO2 23, BUN 4, creatinine 0.7, glucose 95, calcium 8.6, total bilirubin 14.71, AST 1082, ALT 1323, alkaline phosphatase 314. Albumin 3.5. IMAGING: Abdominal ultrasound showed acalculous cholecystitis. ASSESSMENT AND PLAN: Acute hepatitis, waiting on hepatitis profile. HIV was negative. Liver function tests remain elevated and are a little worse today. Continue current management. We are waiting on hepatitis profile results. Further plans will be made as needed. His coagulation studies are normal. Albumin is normal. Further plans will be made as needed. I have discussed this case with Dr. Wells. Dictated by SHIRIN Huitron for Joel Wells MD cc: SHIRIN Garcias MD
[2018-07-28 07:58] LABS: ALB/GLOB RATIO 1.5; DIRECT BILIRUBIN 9.4 mg/dL (0.00-0.20); TOTAL BILIRUBIN 13.12 mg/dL (0.20-1.00); TOTAL PROTEIN 6.7 g/dL (6.3-8.3)
[2018-07-28] MEDS: NORCO-7.5 PO PRN (08:09)
[2018-07-28 08:15] VITALS: BP 128/73
--- NOTE | 2018-07-28 19:58 | GASTROENTEROLOGY PROGRESS NOTE ---
DATE: 07/28/2018 SUBJECTIVE: Patient is awake and alert. He is in no acute distress. He states he hopes to be discharged today. He had a laparoscopic cholecystectomy and liver biopsy. Pathology is pending. He was found to have acute hepatitis C with elevated liver function tests and very high HCV viral load. His numbers are still elevated, but have improved some today. He will need hepatitis C treatment as an outpatient. OBJECTIVE: Vital Signs: Temperature 97.9 degrees, pulse 66, blood pressure 128/73. General: Patient is awake and alert, in no acute distress. Abdomen: Laparoscopic incisions and Steri- Strips in place. No drainage or redness noted. LABORATORY: Hematology: WBC 12.09, hemoglobin 14.1, hematocrit 40.2, MCV 81.0, platelet 369,000. Chemistry: Sodium 138, potassium 4.1, chloride 101, CO2 23, BUN 3, creatinine 0.7, glucose 147, total bilirubin 13.12, AST 565, ALT 1082, alkaline phosphatase 292. ASSESSMENT AND PLAN: 1. Acute hepatitis C with elevated liver function tests. Viral load is very elevated. He will need hepatitis C treatment as an outpatient. We will coordinate that. I will see about calling his work release facility on plans. 2. Acalculous cholecystitis, status post laparoscopic cholecystectomy. He also had liver biopsy. Pathology is pending. 3. Recommend patient follow up with us as an outpatient. I have given him contact information. I will also try to call [facility] and speak with the nurse on logistics of starting hepatitis C treatment. 4. Further plans will be made as needed. I have discussed this case with Dr. Wells. Dictated by SHIRIN Huitron for Joel Wells MD cc: SHIRIN Garcias MD
--- NOTE | 2018-07-29 03:59 | DISCHARGE SUMMARY ---
ADMISSION DATE: 07/24/2018 DISCHARGE DATE: 07/28/2018 PRIMARY CARE PHYSICIAN: Listed as none. ADMISSION DIAGNOSES: Acute hepatitis versus biliary obstruction. DISCHARGE DIAGNOSES: 1. Status post laparoscopic cholecystectomy with intraoperative cholangiogram. 2. Acute hepatitis C. 3. Inmate from correctional facility with officer in room. SUMMARY OF FINDINGS: This is a 32-year-old male with a history of IV drug abuse that presented to the emergency room complaining of abdominal pain. Was brought from the local group home. 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 His liver enzymes are very elevated on arrival with an increased alkaline phosphatase level so he was admitted. We did an abdominal ultrasound that showed an acalculous cholecystitis. We consulted GI and Surgery. He had a laparoscopic cholecystectomy with intraoperative cholangiogram on 07/26/2018 and a liver biopsy of the right lobe of the liver x2. He did well with the procedure. We continued to monitor his liver enzymes as they were very elevated when he arrived. They are trending downward now and GI felt that he could be discharged along with the general surgeon. DISCHARGE MEDICATIONS: He had no discharge medications. FOLLOW-UP: He has an appointment with GI on 08/15/2018 at 2:45 p.m. and to follow up with general surgeon as directed. TIME SPENT: This is a 35 minute discharge. Dictated by SHIRIN Quan for Ryan Reid MD Addendum: Patient seen and examined by myself. Agree with SHIRIN note. It reflects my assessment and plan. Patient is being discharged from hospital in stable condition and follow up with GI as outpatient. cc: SHIRIN Quan MD MTDD
[2018-08-03 07:41] LABS: HCV GENOTYPE RESOLUTION SEE COMMENTS; HEPATITIS C GENOTYPE SEE COMMENTS
== END 2018-07-28 12:50 | DRG 419 ==
LOC: ED 19:40 → 3N 07-24 00:10 → SUATTDRO 07-24 00:10
PROVIDERS: ATTEND Internal Medicine
CPT/HCPCS: 74177; 74300; 76700; 80053; 80074; 80076; 80101; 80301; 80307; 80320; 80324; 80329; 80345; 80346; 80353; 80358; 80361; 80365; 81001; 82003; 82055; 82140; 82150; 82728; 83540; 83550; 83690; 83992; 85025; 85610; 86701; 87389; 87522; 87902; 88304; 88307; 88313; 99285; A9270; C1751; G0431; G0434; G0479; G0480; G6039; G6040; J0330; J0690; J0696; J1100; J1885; J2250; J2270; J2405; J3010; J7030; J7120; Q9966; Q9967